=== PATIENT | male | born 2000 | race Caucasian/White ===

== ENCOUNTER 2020-04-24 15:15 | Outpatient (CLI) | payer BC, SELFPAY | END 2020-04-24 15:16 | disposition home or self-care (01) | LOC: WOUND 15:17 | PROVIDERS: Family Provider Family Medicine; PCP Family Medicine; Visit Provider Thoracic Surgery (Cardiothoracic Vascular Surgery) | DX: E11.621 Type 2 diabetes mellitus with foot ulcer (principal); L97.512 Non-pressure chronic ulcer of other part of right foot with fat layer exposed ==

== ENCOUNTER 2020-05-02 14:50 | Outpatient (CLI) | payer BC, SELFPAY | END 2020-05-02 14:51 | disposition home or self-care (01) | LOC: WOUND 14:50 | PROVIDERS: Family Provider Family Medicine; PCP Family Medicine; Visit Provider Emergency Medicine | DX: E11.621 Type 2 diabetes mellitus with foot ulcer (principal); L97.512 Non-pressure chronic ulcer of other part of right foot with fat layer exposed | CPT/HCPCS: 87070; 87077; 87176; 87186; 87205; L2999; L3260 ==

== ENCOUNTER 2020-05-09 14:49 | Outpatient (CLI) | payer BC, SELFPAY | END 2020-05-09 14:50 | disposition home or self-care (01) | LOC: WOUND 14:50 | PROVIDERS: Family Provider Family Medicine; PCP Family Medicine; Visit Provider Nurse Practitioner Family | DX: E11.621 Type 2 diabetes mellitus with foot ulcer (principal); L97.512 Non-pressure chronic ulcer of other part of right foot with fat layer exposed ==

== ENCOUNTER 2020-07-04 14:52 | Outpatient (CLI) | payer BC, SELFPAY | END 2020-07-04 14:53 | disposition home or self-care (01) | LOC: WOUND 14:52 | PROVIDERS: Family Provider Family Medicine; PCP Family Medicine; Visit Provider Nurse Practitioner Family | DX: Z09 Encounter for follow-up examination after completed treatment for conditions other than malignant neoplasm (principal) ==

== ENCOUNTER → 2024-02-01 10:53 | Outpatient (BNVA) | payer BC, SELFPAY | PROVIDERS: Family Provider Family Medicine; PCP Family Medicine; Visit Provider Family Medicine | DX: R07.9 Chest pain, unspecified (principal) | CPT/HCPCS: 80053; 85025 ==